=== PATIENT | male | born 1950 | race Caucasian/White ===

== ENCOUNTER 2020-11-04 15:37 | Inpatient (IN) | payer OTHER, MEDICARE ==
[~2020-11-04] VITALS: Ht 182.9 cm; Wt 85.0 kg
[~2020-11-04 15:37] MED LIST: ERTAPENEM1 G1 IV
[2020-11-04 16:07] LABS: BASOPHILS ABSOLUTE AUTO 0.01 K/mm3 (0.00-0.23); BASOPHILS PERCENT AUTO 0 % (0-2); EOSINOPHILS ABSOLUTE AUTO 0.11 K/mm3 (0.00-0.68); EOSINOPHILS PERCENT AUTO 1 % (0-6); Hematocrit 19.3 % (37.0-53.0); IMMATURE GRAN ABSOLUTE AUTO 0.07 K/mm3 (0.00-0.10); IMMATURE GRAN PERCENT AUTO 1 % (0-1); LYMPHOCYTES ABSOLUTE AUTO 1.67 K/mm3 (0.84-5.20); LYMPHOCYTES PERCENT AUTO 19 % (21-46); MONOCYTES ABSOLUTE AUTO 0.53 K/mm3 (0.16-1.47); MONOCYTES PERCENT AUTO 6 % (4-13); Mean Corpuscular HGB 30.2 pg (26.0-34.0); Mean Corpuscular HGB Conc 31.1 g/dL (31.5-36.5); Mean Corpuscular Volume 97 fL (80-100); Mean Platelet Volume 11.4 fL (9.1-12.4); NEUTROPHILS ABSOLUTE AUTO 6.35 K/mm3 (1.96-9.15); NEUTROPHILS PERCENT AUTO 73 % (41-73); NRBC ABSOLUTE 0.03 K/mm3 (0.00-0.02); NRBC Auto 0.3 /100 WBC (0.0-0.2); Platelet Count 161 K/mm3 (150-400); RDW Coefficient Variation 18.5 % (11.7-14.2); RDW Standard Deviation 63.9 fL (35.1-46.3); Red Blood Cell Count 1.99 M/mm3 (4.30-5.90); White Blood Cell Count 8.74 K/mm3 (4.00-11.30)
[2020-11-04] MEDS ORDERED: ALLO300 PO ×2 (16:24→17:20)
[2020-11-04] MEDS ORDERED: ASCO500 PO ×2 (16:24→17:20)
[2020-11-04] MEDS ORDERED: ATOR80 PO ×2 (16:25→17:20)
[2020-11-04] MEDS ORDERED: Isosorbide Mono30 MG PO ×2 (16:25→17:17)
[2020-11-04] MEDS ORDERED: GABA100 PO ×2 (16:25→17:17)
[2020-11-04] MEDS ORDERED: TRAZ150T57 PO ×2 (16:26→17:18)
[2020-11-04] MEDS ORDERED: ACET325 PO (16:26)
[2020-11-04] MEDS ORDERED: MULVITA PO (16:26)
[2020-11-04] MEDS ORDERED: METO25ER PO ×2 (16:26→17:18)
[2020-11-04] MEDS ORDERED: INVANZ IV (16:27)
[2020-11-04] MEDS ORDERED: DOCU100 PO ×2 (16:27→17:19)
[2020-11-04 16:28] LABS: Alanine Aminotransfer (ALT/SGP 67 U/L (12-78); Albumin, Blood 1.8 g/dL (3.4-5.0); Albumin/Globulin Ratio 0.7 (0.8-1.8); Alk Phos 63 U/L (50-136); Anion Gap 5 mmol/L (6-16); Aspartate Aminotrans (AST/SGOT 27 U/L (12-37); Bilirubin, Total 0.6 mg/dL (0.1-1.0); Blood Urea Nitrogen 37 mg/dL (8-24); Bun/Creatinine Ratio 61.3 (12.0-20.0); CO2, Blood 25 mmol/L (21-32); Calcium, Blood 7.4 mg/dL (8.5-10.1); Chloride, Blood 111 mmol/L (98-108); Globulin, Blood 2.5 g/dL (2.2-4.0); Glomerular Filtration Rate >60 (60-); Glucose, Blood 155 mg/dL (70-99); Potassium, Blood 3.8 mmol/L (3.5-5.5); Sodium, Blood 141 mmol/L (136-145); Total Protein, Blood 4.3 g/dL (6.4-8.2)
[2020-11-04] MEDS ORDERED: Percocet 5-3251 EACH PO (16:28)
[2020-11-04] MEDS ORDERED: FERSU300 PO ×2 (16:28→17:20)
[2020-11-04] MEDS ORDERED: DAILY-VITE1 EAC1 PO (17:18)
--- NOTE | 2020-11-04 19:20 | NUR ---
ASSUMED CARE PT ARRIVED FROM ER VIA STRETCHER, SLIDER SHEET USED TO TRANSFER PT TO BED; PT A&O X4; ANSWERS APPROPRIATELY; FORGETS SOME DETAILS ON DATES OF HOSPITAL STAY IN [place] AND [facility], ETC.; RECEIVED ONE UNIT PRBC IN ER W/ HGB 6.0; STATES HE DOES FEEL WEAK AND FATIGUED; VSS; DENIES CHEST PAIN; O2 SATS >93 ON RA; PT HAS R LEG BRACE ON FROM KNEE SURGERY; L ARM SWOLLEN DUE TO BLOOD CLOT; ORIENTED TO ROOM / CALL LIGHT SYSTEM; ALL BELONGINGS AND CALL LIGHT IN REACH; BED IN LOWEST POSITION.
[2020-11-04 21:43] LABS: Hematocrit 21.3 % (37.0-53.0); Hemoglobin 6.8 g/dL (13.5-17.5)
[2020-11-04 23:24] LABS: Influenza A, PCR NEGATIVE (NEGATIVE); Influenza B, PCR NEGATIVE (NEGATIVE); Resp Syncytial Virus, PCR NEGATIVE (NEGATIVE); SARS-Cov-2 (COVID-19) PCR, MMC NEGATIVE (NEGATIVE)
--- NOTE | 2020-11-05 05:09 | NUR ---
SHIFT SUMMARY PT A&O X 4; PLEASANT & COMPLIANT W/ CARE; DENIES CHEST PAIN; VSS; PACED ON TELE; O2 SATS >93 ON RA; PT FINISHED GOLYTELY BOWEL PREP; BM FREQUENT, LOOSE, CALLS FOR [employer] ADVISOR, LIQUID BUT REMAINS DK IN COLOR W/ SEDIMENT; NOTIFIED OF HGB OF 6.8, NEW ORDER GIVEN FOR 1U PRBC; CALL LIGHT IN REACH; BED IN LOWEST POSITION; WILL CONTINUE TO MONITOR CLOSELY UNTIL HAND OFF TO DAY SHIFT RN.
--- NOTE | 2020-11-05 06:40 | NUR ---
UPDATE CALLED DAY SURGERY AND SPOKE W/ POLLO TO NOTIFY OF PT STOOL BEING VERY DARK W/ SEDIMENT; PT COMPLETED BOWEL PREP @ APPROXIMATELY 0245
[2020-11-05 06:52] LABS: BASOPHILS ABSOLUTE AUTO 0.02 K/mm3 (0.00-0.23); BASOPHILS PERCENT AUTO 0 % (0-2); EOSINOPHILS ABSOLUTE AUTO 0.12 K/mm3 (0.00-0.68); EOSINOPHILS PERCENT AUTO 2 % (0-6); Hemoglobin 7.1 g/dL (13.5-17.5); IMMATURE GRAN ABSOLUTE AUTO 0.07 K/mm3 (0.00-0.10); IMMATURE GRAN PERCENT AUTO 1 % (0-1); LYMPHOCYTES ABSOLUTE AUTO 1.58 K/mm3 (0.84-5.20); LYMPHOCYTES PERCENT AUTO 19 % (21-46); MONOCYTES ABSOLUTE AUTO 0.53 K/mm3 (0.16-1.47); MONOCYTES PERCENT AUTO 7 % (4-13); Mean Corpuscular HGB 30.9 pg (26.0-34.0); Mean Corpuscular HGB Conc 32.3 g/dL (31.5-36.5); Mean Corpuscular Volume 96 fL (80-100); Mean Platelet Volume 11.2 fL (9.1-12.4); NEUTROPHILS ABSOLUTE AUTO 5.84 K/mm3 (1.96-9.15); NEUTROPHILS PERCENT AUTO 72 % (41-73); Platelet Count 143 K/mm3 (150-400); RDW Coefficient Variation 18.1 % (11.7-14.2); RDW Standard Deviation 59.7 fL (35.1-46.3); White Blood Cell Count 8.16 K/mm3 (4.00-11.30)
[2020-11-05 07:14] LABS: Alanine Aminotransfer (ALT/SGP 63 U/L (12-78); Albumin, Blood 1.9 g/dL (3.4-5.0); Albumin/Globulin Ratio 0.8 (0.8-1.8); Alk Phos 62 U/L (50-136); Anion Gap 6 mmol/L (6-16); Aspartate Aminotrans (AST/SGOT 31 U/L (12-37); Bilirubin, Total 1.6 mg/dL (0.1-1.0); Blood Urea Nitrogen 24 mg/dL (8-24); Bun/Creatinine Ratio 38.3 (12.0-20.0); CO2, Blood 26 mmol/L (21-32); Calcium, Blood 7.2 mg/dL (8.5-10.1); Chloride, Blood 112 mmol/L (98-108); Creatinine, Blood 0.63 mg/dL (0.60-1.20); Globulin, Blood 2.5 g/dL (2.2-4.0); Glomerular Filtration Rate >60 (60-); Glucose, Blood 81 mg/dL (70-99); Potassium, Blood 3.2 mmol/L (3.5-5.5); Sodium, Blood 144 mmol/L (136-145); Total Protein, Blood 4.4 g/dL (6.4-8.2)
--- NOTE | 2020-11-05 07:34 | NUR ---
PT TO DAY SURGERY PT TO DAY SURGERY BY TAMERA WITH RN.
--- NOTE | 2020-11-05 08:06 | NUR ---
11/05/20 0806 Julee Caballero History, Chart, Medications and Allergies reviewed before start of procedure. 3-LEAD EKG REVIEWED WITH PHYSICIAN PRIOR TO START OF PROCEDURE. MONITOR INTACT WITH CONTINUOUS PULSE OXIMETRY AND INTERMITTENT BP. O2 VIA N/C INTACT THROUGHOUT SEDATION/PROCEDURE. PATIENT DETERMINED TO BE ASA APPROPRIATE FOR PROPOFOL SEDATION PRIOR TO START OF PROCEDURE BY DR. BE.
--- NOTE | 2020-11-05 09:31 | NUR ---
REPORT RECIEVED REPORT RECIEVED FROM DAY SURGERY RN. PT TO BE TRANPORTED BACK TO ROOM BY BED.
--- NOTE | 2020-11-05 10:21 | NUR ---
PT BACK TO ROOM PT BACK FROM DAY SURGERY. VS STABLE.
--- NOTE | 2020-11-05 17:32 | NUR ---
SHIFT SUMMARY PT ALERT AND ORIENTED X 4. NO SIGNS OF BLEEDING T/O SHIFT. PT ABLE TO MOVE SELF IN BED, BARRIER CREAM ON R BUTTOCK. HR STABLE. BP STABLE. OXYGEN SATURATION MAINTAINED ABOVE 92% ON RA. R LEG REMAINS IN LEG BRACE. BP ONLY ON R FOREARM. DEPENDS IN PLACE. PT CONTINENT OF URINE. WILL CONTINUE TO MONITOR UNTIL REPORT GIVEN TO NIGHTSHIFT RN.
[2020-11-06 04:32] LABS: Hematocrit 21.2 % (37.0-53.0); Hemoglobin 6.5 g/dL (13.5-17.5); Mean Corpuscular HGB 29.7 pg (26.0-34.0); Mean Corpuscular HGB Conc 30.7 g/dL (31.5-36.5); Mean Corpuscular Volume 97 fL (80-100); Mean Platelet Volume 11.2 fL (9.1-12.4); Platelet Count 131 K/mm3 (150-400); RDW Coefficient Variation 18.5 % (11.7-14.2); RDW Standard Deviation 62.3 fL (35.1-46.3); Red Blood Cell Count 2.19 M/mm3 (4.30-5.90); White Blood Cell Count 7.12 K/mm3 (4.00-11.30)
[2020-11-06 04:46] LABS: Anion Gap 6 mmol/L (6-16); Blood Urea Nitrogen 22 mg/dL (8-24); Bun/Creatinine Ratio 33.9 (12.0-20.0); CO2, Blood 25 mmol/L (21-32); Calcium, Blood 7.2 mg/dL (8.5-10.1); Chloride, Blood 113 mmol/L (98-108); Creatinine, Blood 0.65 mg/dL (0.60-1.20); Glomerular Filtration Rate >60 (60-); Glucose, Blood 95 mg/dL (70-99); Potassium, Blood 3.1 mmol/L (3.5-5.5); Sodium, Blood 144 mmol/L (136-145)
--- NOTE | 2020-11-06 07:41 | NUR ---
SHIFT SUMMARY PT A&O X 4; PLEASANT & COMPLIANT W/ CARE; DENIES CHEST PAIN; VSS; PACED ON TELE; PROTONIX GTT @ 10; NS @ 75; DR. SCOTT NOTIFIED OF AM LAB DRAW, HGB 6.5; NEW ORDER FOR 1 UNIT PRBC TO BE GIVEN; NOTIFIED PT; USES URINAL IN BED; REQUEST VISIT FROM [facility], PUT IN ADMIT ASSESS AND NOTIFIED DAY RN; PT SLEPT SEVERAL HOURS OFF AND ON IN BETWEEN INTERVENTIONS; NO DISTRESS NOTED; CALL LIGHT IN REACH; BED IN LOWEST POSITION; REPORT GIVEN TO DAY SHIFT RN.
--- NOTE | 2020-11-06 12:28 | NUR ---
TRANSFER TO MEDICAL: PT ALERT AND ORIENTED X4. ON ROOM AIR SATING ABOVE 92%. TELE SHOWING 100% PACED WITH PVC'S AND PAC'S. HR 70. DENIES CHEST PAIN. NEURO WNL. USING URINAL WITH ASSISTANCE. NO BM THIS MORNING. RIGHT KNEE BRACE IN PLACE. DRESSING INTACT UNDERNEATH. PT STATE HE TALKED WITH HIS ORTHOPEDIC SURGEON AND HE WOULD LIKE THE STICHES REMOVED. PT PLACED SECOND CALL TO SURGEON WITH [employer] PHONE NUMBER FOR DOCTORS OFFICE TO CALL WITH SPECIFIC INSTRUCTIONS ON STITCHES AND SURGICAL WOUND. MIN-MODERATE EDEMA NOTED IN RIGHT ANKLE/FOOT. PITTING EDEMA IN RIGHT HIP PROXIMAL TO KNEE BRACE. LEFT ARM EDEMA/SWELLING NOTED, HX OF DVT. VITALS SIGNS STABLE. NO ACUTE CHANGES. MEDICAL STATUS WITH TELE. PROTONIX AND NS INFUSING. RIGHT UPPER ARM POWERGLIDE AND RIGHT FOREARM IV.
--- NOTE | 2020-11-06 15:13 | NUR ---
Upon receiving an admit referral for spiritual care, I visit patient. Because therapeutic alliance is easily established, patient shares about the struggles of his life during this season, about the toll the isolation is taking and about how his usually ways of de-stressing have been abruptly limited. Patient admits that some sources of strength like prayer and daily conversations with his Radha are still in place. I listen empathically and provide emotional support, pastoral residential counselor and prayer. Patient responds well a shows signs of having an increased hope.
--- NOTE | 2020-11-06 17:55 | NUR ---
Shift Summary Received report from [facility] PCU-RN. Patient arrived via bed with personal belongings, phone, and both parts of bar pointer. Received a call from patient's Orthopedic office in [place] RE wound care orders. Order was faxed here, placed in chart, and entered onto a Notify-MARY order. Wound care done to R knee, minimal SS drainage with some redness and blisters surrounding the middle part of the wound. Photos taken and in chart. Dry dressing intact. R leg immobilizer on. Continuous NS @ 75 and protonix drip @ 10. Denies pain, shortness of breath. A/O, cooperative with care. Uses urinal independently in bed. Calls for needs appropriately. No bowel movements since transferred to Med floor. WCTM.
[2020-11-07 04:39] LABS: Hematocrit 25.9 % (37.0-53.0); Hemoglobin 8.2 g/dL (13.5-17.5); Mean Corpuscular HGB 30.8 pg (26.0-34.0); Mean Corpuscular HGB Conc 31.7 g/dL (31.5-36.5); Mean Corpuscular Volume 97 fL (80-100); Mean Platelet Volume 11.1 fL (9.1-12.4); Platelet Count 127 K/mm3 (150-400); RDW Coefficient Variation 18.1 % (11.7-14.2); RDW Standard Deviation 61.4 fL (35.1-46.3); Red Blood Cell Count 2.66 M/mm3 (4.30-5.90); White Blood Cell Count 7.18 K/mm3 (4.00-11.30)
--- NOTE | 2020-11-07 04:54 | NUR ---
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 had GI bleed on xaralto. HAd at least 3 units transfused PRBC, last unit yesterday. HBG 8.2 this AM..PT had been sent to [facility] post I & D Rt septic knee DVT & developed GI bleed on anticoagulants. Had endoscopy colonoscopy this stay with ulcers tx. No signs of active bleeding on continous protonix gtt. PT lt ue had deep edema improved with elevation on 2 pillows. On tele monitor with rate always 70 100% paced. Took ensure clear yogurt & snack grahm crackers with pnut butter when set up.
[2020-11-07 05:02] LABS: Anion Gap 6 mmol/L (6-16); Blood Urea Nitrogen 20 mg/dL (8-24); Bun/Creatinine Ratio 33.3 (12.0-20.0); CO2, Blood 24 mmol/L (21-32); Calcium, Blood 7.4 mg/dL (8.5-10.1); Chloride, Blood 114 mmol/L (98-108); Glomerular Filtration Rate >60 (60-); Glucose, Blood 137 mg/dL (70-99); Potassium, Blood 3.2 mmol/L (3.5-5.5); Sodium, Blood 144 mmol/L (136-145)
--- NOTE | 2020-11-07 17:02 | NUR ---
PATIENT A/OX4, UP WITH FWW, GB AND SBA. WBAT TO R LEG. PROTONIX GTT RUNNING. NS @ 75ML/HR AND MERREM Q8 TO TREAT R KNEE INFECTION. PATIENT DID NOT HAVE A BM TODAY, TOLERATINGADA/CARDIAC DIET. VSS, ON RA. DRESSING CHANGES TO R KNEE ARE DONE WEEKLY. RESTARTING XARELTO THIS EVENING. DVT TO L ARM, SWELLING HAS IMPROVED THROUGHOUT THE DAY. 100% PACED AT 70, PATIENT DENIES ANY CP OR SOB. PLAN IS TO DC BACK TO [facility] TOMORROW FOR STRENGTHENING AND ABX THERAPY.
[2020-11-07] MEDS ORDERED: XARELTO20 MG PO (23:39)
[2020-11-07] MEDS ORDERED: SULFAMETHOXAZO1 EAC1 PO (23:40)
[2020-11-08 05:40] LABS: Hematocrit 25.3 % (37.0-53.0); Mean Corpuscular HGB 30.8 pg (26.0-34.0); Mean Corpuscular HGB Conc 31.6 g/dL (31.5-36.5); Mean Corpuscular Volume 97 fL (80-100); Platelet Count 134 K/mm3 (150-400); RDW Coefficient Variation 18.1 % (11.7-14.2); RDW Standard Deviation 61.8 fL (35.1-46.3); White Blood Cell Count 6.27 K/mm3 (4.00-11.30)
--- NOTE | 2020-11-08 06:07 | NUR ---
PT continues to deny acute distress. continues 100% paced rate 70. PT has iv protonix gtt infusing at 10 ml hr & NS at 75 ml hr. Tolerating diet & activity was up on day shift several times. Hbg 8 this AM& no s/sx of active GI bleed. LT arm hand continue edematous elevated with heplful effect. Resumesd anticoagulant yesterday. Has PICC line & blood for AM labs drawn.
[2020-11-08 06:16] LABS: Anion Gap 6 mmol/L (6-16); Blood Urea Nitrogen 19 mg/dL (8-24); Bun/Creatinine Ratio 29.1 (12.0-20.0); CO2, Blood 24 mmol/L (21-32); Calcium, Blood 7.8 mg/dL (8.5-10.1); Chloride, Blood 114 mmol/L (98-108); Creatinine, Blood 0.65 mg/dL (0.60-1.20); Glomerular Filtration Rate >60 (60-); Glucose, Blood 94 mg/dL (70-99); Potassium, Blood 3.5 mmol/L (3.5-5.5); Sodium, Blood 144 mmol/L (136-145)
[2020-11-08] MEDS ORDERED: OMEP20ER PO (10:07)
[2020-11-08 13:04] LABS: Influenza A, PCR NEGATIVE (NEGATIVE); Influenza B, PCR NEGATIVE (NEGATIVE); Resp Syncytial Virus, PCR NEGATIVE (NEGATIVE); SARS-Cov-2 (COVID-19) PCR, MMC NEGATIVE (NEGATIVE)
--- NOTE | 2020-11-08 13:43 | NUR ---
REPORT CALLED TO GONZALEZ AT [facility]
== END 2020-11-08 14:14 | disposition home or self-care (01) | DRG 378 ==
LOC: ER 15:37 → PCU 18:30 → MEDS 11-06 13:34
PROVIDERS: Emergency Medicine; Internal Medicine; Internal Medicine Gastroenterology; Nurse Practitioner Acute Care; ADMIT Internal Medicine
PROC: 30233N1 Transfusion of Nonautologous Red Blood Cells into Peripheral Vein, Percutaneous Approach (ICD-10-PCS; 2020-11-04)
PROC: 0W3P8ZZ Control Bleeding in Gastrointestinal Tract, Via Natural or Artificial Opening Endoscopic (ICD-10-PCS; principal; 2020-11-05 08:00)
PROC: 0DJD8ZZ Inspection of Lower Intestinal Tract, Via Natural or Artificial Opening Endoscopic (ICD-10-PCS; 2020-11-05 08:00)
DX: K26.4 Chronic or unspecified duodenal ulcer with hemorrhage (principal); D62 Acute posthemorrhagic anemia; K57.32 Diverticulitis of large intestine without perforation or abscess without bleeding; I25.10 Atherosclerotic heart disease of native coronary artery without angina pectoris; Z86.718 Personal history of other venous thrombosis and embolism; I48.0 Paroxysmal atrial fibrillation; E87.6 Hypokalemia; Z86.711 Personal history of pulmonary embolism; Z88.1 Allergy status to other antibiotic agents; D50.9 Iron deficiency anemia, unspecified; Z95.0 Presence of cardiac pacemaker; Z79.899 Other long term (current) drug therapy; I50.9 Heart failure, unspecified; I11.0 Hypertensive heart disease with heart failure; Z87.891 Personal history of nicotine dependence; K64.8 Other hemorrhoids; K63.5 Polyp of colon
CPT/HCPCS: 0241U; 36415; 36430; 80048; 80053; 85014; 85018; 85025; 85027; 86850; 86900; 86901; 86923; 93005; 93010; 93971; 96374; 97162; 97166; 97530; 97535; 99285-25; A9270; C9113; J0171; J2185; J2250; J2704; J7030; J7050; J7120; P9016

== ENCOUNTER 2020-11-11 09:35 | Inpatient (IN) | payer OTHER, MEDICARE ==
[~2020-11-11] VITALS: Ht 182.9 cm; Wt 88.8 kg
[~2020-11-11 09:35] MED LIST changes: +ACET325 PO; +ALLO300 PO; +ASCO500 PO; +ATOR80 PO; +DAILY-VITE1 EAC1 PO; +DOCU100 PO; +FERSU300 PO; +GABA100 PO; +INVANZ IV; +Isosorbide Mono30 MG PO; +METO25ER PO; +MULVITA PO; +OMEP20ER PO; +Percocet 5-3251 EACH PO; +SULFAMETHOXAZO1 EAC1 PO; +TRAZ150T57 PO; +XARELTO20 MG PO
[2020-11-11 09:55] LABS: Calcium, Ionized (POC) 1.08 mmol/L (1.10-1.46); Chloride (POC) 106 mmol/L (98-108); Creatinine (POC) 0.6 mg/dL (0.8-1.3); Glucose (ISTAT POC) 120 mg/dL (70-99); Hemoglobin (POC) 5.8 g/dL (13.5-17.5); Potassium (POC) 3.6 mmol/L (3.5-5.5); Sodium (POC) 142 mmol/L (135-148); Total CO2 (POC) 24 mmol/L (21-32)
[2020-11-11 10:17] LABS: BASOPHILS ABSOLUTE AUTO 0.03 K/mm3 (0.00-0.23); BASOPHILS PERCENT AUTO 0 % (0-2); EOSINOPHILS ABSOLUTE AUTO 0.01 K/mm3 (0.00-0.68); EOSINOPHILS PERCENT AUTO 0 % (0-6); Hematocrit 19.3 % (37.0-53.0); IMMATURE GRAN ABSOLUTE AUTO 0.02 K/mm3 (0.00-0.10); IMMATURE GRAN PERCENT AUTO 0 % (0-1); LYMPHOCYTES ABSOLUTE AUTO 0.86 K/mm3 (0.84-5.20); LYMPHOCYTES PERCENT AUTO 12 % (21-46); MONOCYTES ABSOLUTE AUTO 0.28 K/mm3 (0.16-1.47); MONOCYTES PERCENT AUTO 4 % (4-13); Mean Corpuscular HGB 30.3 pg (26.0-34.0); Mean Corpuscular HGB Conc 30.6 g/dL (31.5-36.5); Mean Corpuscular Volume 99 fL (80-100); Mean Platelet Volume 11.3 fL (9.1-12.4); NEUTROPHILS ABSOLUTE AUTO 5.93 K/mm3 (1.96-9.15); NEUTROPHILS PERCENT AUTO 83 % (41-73); Platelet Count 155 K/mm3 (150-400); RDW Coefficient Variation 16.3 % (11.7-14.2); RDW Standard Deviation 58.6 fL (35.1-46.3); Red Blood Cell Count 1.95 M/mm3 (4.30-5.90); White Blood Cell Count 7.13 K/mm3 (4.00-11.30)
[2020-11-11 10:23] LABS: Hemoglobin 5.9 g/dL (13.5-17.5)
[2020-11-11 10:26] LABS: International Normalized Ratio 1.43
[2020-11-11 13:06] LABS: Adenovirus F 40/41 Not Detected (NOT DETECT); Astrovirus Not Detected (NOT DETECT); Campylobacter Sp Not Detected (NOT DETECT); Cryptosporidium Not Detected (NOT DETECT); Cyclospora Cayetanensis Not Detected (NOT DETECT); E. Coli O157 Not Detected (NOT DETECT); Entamoeba Histolytica Not Detected (NOT DETECT); Enteroaggregative E. coli-EAEC Not Detected (NOT DETECT); Enteropathogenic E. coli-EPEC Not Detected (NOT DETECT); Enterotoxigenic E. coli-ETEC Not Detected (NOT DETECT); Giardia Lamblia Not Detected (NOT DETECT); Norovirus GI/GII Not Detected (NOT DETECT); Plesiomonas Shigelloides Not Detected (NOT DETECT); Rotavirus A Not Detected (NOT DETECT); Salmonella Sp Not Detected (NOT DETECT); Sapovirus Not Detected (NOT DETECT); Shiga Toxin-prod E. coli-STEC Not Detected (NOT DETECT); Shigella/Enteroin E. coli-EIEC Not Detected (NOT DETECT); Vibrio Cholerae Not Detected (NOT DETECT); Vibrio Sp Not Detected (NOT DETECT); Yersinia Enterocolitica Not Detected (NOT DETECT)
--- NOTE | 2020-11-11 13:24 | NUR ---
11/11/20 1324 Danae Duron History, Chart, Medications and Allergies reviewed before start of procedure. Patient confirms NPO status and agrees with scheduled surgery. PATIENT DETERMINED TO BE ASA APPROPRIATE FOR PROPOFOL SEDATION PRIOR TO START OF PROCEDURE BY . 3-LEAD EKG REVIEWED WITH PHYSICIAN PRIOR TO START OF PROCEDURE. MONITOR INTACT WITH CONTINUOUS PULSE OXIMETRY AND INTERMITTENT BP. SUPPLEMENTAL O2 TO BE TITRATED THROUGHOUT PROCEDURE TO MAINTAIN O2 SATURATION ABOVE 90%.Bite Block Placed AND REMOVED AT END OF PROCEDURE.
--- NOTE | 2020-11-11 13:30 | NUR ---
ADMIT PT ARRIVED TO ICU 10 FROM ED. PT ALERT AND ORIENTED, PALE. SBP IN THE 80S AND DROPPED TO THE 70S WITHIN AN HOUR. 2ND UNIT PRBC FINISHING UP. DR. BA NOTIFIED OF BP AND RECEIVED ORDER FOR 1L NS AND [address] GARCIA HERE AND REQUESTED LEVOPHED BE AVAILABLE FOR PROCEDURE. PT HAS PERIPHERAL IN RA THAT FLUSHES AND DRAWS BLOOD, BUT BP CUFF IS ON RUE BECAUSE THERE IS A DVT IN LUE. BP CUFF MOVED TO LLE AND SBP 130S. DR. GARCIA NOTIFIED OF DIFFERENCE IN BP. HE REQUESTED LEVOPHED STILL BE AVAILABLE IN CASE BP READING ON LEG DROPS. EGD TEAM SETTING UP CURRENTLY.
[2020-11-11 14:02] LABS: Hemoglobin 6.4 g/dL (13.5-17.5)
--- NOTE | 2020-11-11 15:26 | NUR ---
TRANSFER PT HAD EGD WITH DR. GARCIA. DR. HIDALGO CAME TO EVALUATE PT DURING SCOPE AND AFTER SEEING THE ULCER THEY DECIDED IR WOULD BE BEST FOR PT. ACCEPTING DR AND ROOM ASSIGNMENT RECEIVED FROM [facility]. PT AND HIS UPDATED VIA PHONE. AFTER SCOPE DR. GARCIA GAVE ORDER FOR 2 MORE UNITS OF PRBC WHICH WERE GIVEN BEFORE PT LEFT. PT HAD LARGE MAROON, GELATINOUS STOOL BEFORE HE LEFT. REPORT CALLED TO GONZALZE GOLDSTEIN AT [facility]. PT TRANSFERRED VIA AMBULANCE. ALL BELONGINGS SENT WITH PT.
== END 2020-11-11 14:30 | disposition short-term general hospital (02) | DRG 378 ==
LOC: ER 09:35 → ICUW 11:32
PROVIDERS: Physician Assistant; Student in an Organized Health Care Education/Training Program; ADMIT Internal Medicine
PROC: 0DJ08ZZ Inspection of Upper Intestinal Tract, Via Natural or Artificial Opening Endoscopic (ICD-10-PCS; principal; 2020-11-11 13:30)
DX: K26.0 Acute duodenal ulcer with hemorrhage (principal); I48.20 Chronic atrial fibrillation, unspecified; I95.9 Hypotension, unspecified; D50.9 Iron deficiency anemia, unspecified; I11.0 Hypertensive heart disease with heart failure; I25.10 Atherosclerotic heart disease of native coronary artery without angina pectoris; I50.9 Heart failure, unspecified; M10.9 Gout, unspecified; E78.5 Hyperlipidemia, unspecified; E11.9 Type 2 diabetes mellitus without complications; Z88.1 Allergy status to other antibiotic agents; Z79.01 Long term (current) use of anticoagulants; Z79.899 Other long term (current) drug therapy; Z86.718 Personal history of other venous thrombosis and embolism; Z95.0 Presence of cardiac pacemaker; Z87.891 Personal history of nicotine dependence
CPT/HCPCS: 0097U; 36415; 36430; 71045; 80047; 82272; 82947; 85014; 85018; 85025; 85610; 85730; 86850; 86900; 86901; 86920; 86923; 87324; 93005; 93010; 96374; 96376; 99285-25; C9113; J0171; J1430; J2250; J2704; J3010; J7030; J7120; P9016; P9059